=== PATIENT | male | born 1950 | race Caucasian/White ===

== ENCOUNTER 2021-11-28 10:49 | Day surgery (SDC) | payer MEDICARE, BC ==
[~2021-11-28] VITALS: Ht 182.9 cm; Wt 73.8 kg
[~2021-11-28 10:49] MED LIST: ASPI325; Excedrin Extra1 EACH PO; Maxalt10 MG PO; OMEP20ER PO
[2021-11-28] MEDS ORDERED: METO25ER (11:26)
== END 2021-11-28 13:15 | disposition home or self-care (01) ==
LOC: ORSCSDS 10:49
PROVIDERS: Internal Medicine Gastroenterology
PROC: 0DBM8ZX Excision of Descending Colon, Via Natural or Artificial Opening Endoscopic, Diagnostic (ICD-10-PCS; principal; 2021-11-28 12:00)
PROC: 0DBL8ZX Excision of Transverse Colon, Via Natural or Artificial Opening Endoscopic, Diagnostic (ICD-10-PCS; principal; 2021-11-28 12:00)
DX: D50.9 Iron deficiency anemia, unspecified (principal); D12.3 Benign neoplasm of transverse colon; D12.4 Benign neoplasm of descending colon; K57.30 Diverticulosis of large intestine without perforation or abscess without bleeding; K64.8 Other hemorrhoids; Z87.11 Personal history of peptic ulcer disease; Z79.899 Other long term (current) drug therapy
CPT/HCPCS: 88305; J2704; J7120

== ENCOUNTER 2022-04-25 11:31 | Emergency (ER) | payer MEDICARE, BC ==
[~2022-04-25] VITALS: Ht 180.3 cm; Wt 81.7 kg
[~2022-04-25 11:31] MED LIST changes: +METO25ER
[2022-04-25 12:23] LABS: BASOPHILS ABSOLUTE AUTO 0.03 K/mm3 (0.00-0.23); BASOPHILS PERCENT AUTO 0 % (0-2); EOSINOPHILS ABSOLUTE AUTO 0.11 K/mm3 (0.00-0.68); EOSINOPHILS PERCENT AUTO 2 % (0-6); Hematocrit 33.9 % (37.0-53.0); Hemoglobin 11.2 g/dL (13.5-17.5); IMMATURE GRAN ABSOLUTE AUTO 0.02 K/mm3 (0.00-0.10); IMMATURE GRAN PERCENT AUTO 0 % (0-1); LYMPHOCYTES ABSOLUTE AUTO 1.36 K/mm3 (0.84-5.20); LYMPHOCYTES PERCENT AUTO 20 % (21-46); MONOCYTES ABSOLUTE AUTO 0.46 K/mm3 (0.16-1.47); MONOCYTES PERCENT AUTO 7 % (4-13); Mean Corpuscular HGB 28.6 pg (26.0-34.0); Mean Corpuscular Volume 87 fL (80-100); Mean Platelet Volume 10.6 fL (9.1-12.4); NEUTROPHILS ABSOLUTE AUTO 4.88 K/mm3 (1.96-9.15); NEUTROPHILS PERCENT AUTO 71 % (41-73); Platelet Count 160 K/mm3 (150-400); RDW Coefficient Variation 16.2 % (11.7-14.2); RDW Standard Deviation 51.5 fL (35.1-46.3); Red Blood Cell Count 3.91 M/mm3 (4.30-5.90); White Blood Cell Count 6.86 K/mm3 (4.00-11.30)
[2022-04-25 12:47] LABS: Albumin, Blood 3.5 g/dL (3.4-5.0); Albumin/Globulin Ratio 1.4 (0.8-1.8); Bilirubin, Total 0.6 mg/dL (0.1-1.0); Bun/Creatinine Ratio 36.7 (12.0-20.0); Calcium, Blood 8.8 mg/dL (8.5-10.1); Creatinine, Blood 0.82 mg/dL (0.60-1.20); Globulin, Blood 2.5 g/dL (2.2-4.0); Potassium, Blood 4.1 mmol/L (3.5-5.5)
== END 2022-04-25 13:59 | disposition home or self-care (01) ==
LOC: ER 11:31
PROVIDERS: Physician Assistant
DX: K92.1 Melena (principal); D62 Acute posthemorrhagic anemia; K64.8 Other hemorrhoids; Z88.8 Allergy status to other drugs, medicaments and biological substances; Z79.899 Other long term (current) drug therapy; Z87.891 Personal history of nicotine dependence
CPT/HCPCS: 36415; 80053; 85025; 86850; 86900; 86901; 93005; 93010; 99283-25

== ENCOUNTER 2023-01-27 11:21 | Observation (INO) | payer OTHER, BC ==
[~2023-01-27] VITALS: Ht 180.3 cm; Wt 79.3 kg
[2023-01-27] MEDS ORDERED: METOPROLOL TART5010 PO (11:59)
[2023-01-27] MEDS ORDERED: LOSA50 PO (11:59)
[2023-01-27 12:03] LABS: BASOPHILS ABSOLUTE AUTO 0.02 K/mm3 (0.00-0.23); BASOPHILS PERCENT AUTO 0 % (0-2); EOSINOPHILS ABSOLUTE AUTO 0.11 K/mm3 (0.00-0.68); EOSINOPHILS PERCENT AUTO 2 % (0-6); Hematocrit 32.2 % (37.0-53.0); Hemoglobin 10.7 g/dL (13.5-17.5); IMMATURE GRAN ABSOLUTE AUTO 0.02 K/mm3 (0.00-0.10); IMMATURE GRAN PERCENT AUTO 0 % (0-1); LYMPHOCYTES ABSOLUTE AUTO 1.19 K/mm3 (0.84-5.20); LYMPHOCYTES PERCENT AUTO 18 % (21-46); MONOCYTES ABSOLUTE AUTO 0.42 K/mm3 (0.16-1.47); MONOCYTES PERCENT AUTO 6 % (4-13); Mean Corpuscular HGB 30.1 pg (26.0-34.0); Mean Corpuscular HGB Conc 33.2 g/dL (31.5-36.5); Mean Corpuscular Volume 90 fL (80-100); Mean Platelet Volume 10.6 fL (9.1-12.4); NEUTROPHILS ABSOLUTE AUTO 4.82 K/mm3 (1.96-9.15); NEUTROPHILS PERCENT AUTO 73 % (41-73); Platelet Count 173 K/mm3 (150-400); RDW Coefficient Variation 13.8 % (11.7-14.2); RDW Standard Deviation 45.1 fL (35.1-46.3); Red Blood Cell Count 3.56 M/mm3 (4.30-5.90); White Blood Cell Count 6.58 K/mm3 (4.00-11.30)
[2023-01-27 12:22] LABS: Albumin, Blood 3.4 g/dL (3.4-5.0); Albumin/Globulin Ratio 1.1 (0.8-1.8); Bilirubin, Total 0.7 mg/dL (0.1-1.0); Calcium, Blood 8.9 mg/dL (8.5-10.1); Creatinine, Blood 0.95 mg/dL (0.60-1.20); Globulin, Blood 3.1 g/dL (2.2-4.0); Potassium, Blood 4.1 mmol/L (3.5-5.5); Total Protein, Blood 6.5 g/dL (6.4-8.2)
[2023-01-27 14:17] VITALS: BP 151/76
[2023-01-27 15:44] VITALS: BP 151/70
--- NOTE | 2023-01-27 18:16 | NUR ---
SHIFT SUMMARY PT A&OX4 AND PLEASANT. PT TRANSFERED FROM ED AT ABOUT 1400. PT ORRIENTED TO ROOM. NO C/O PAIN. DENIED N/V. PT STATED NO BM SINCE ARRIVING AT THE HOSPITAL. PT NPO FOR ENDOSCOPE. PER ED NOTES, DR ROSSI WAS CONSULTED ABOUT PT'S POSSIBLE GI BLEED AND DR ROSSI RECOMENDED ADMISSION. ORDER FOR GI CONSULT AND RN TO NOTIFY BUT THERE IS NO GI COVERAGE FOR THE REST OF THE MONTH SO THIS NURSE UNABLE TO NOTIFY GI OFFICE. PT STILL NPO FOR PLANNED ENDOSCOPY TOMORROW. IND IN ROOM. VSS. BED IN LOWEST POSITION AND CALL LIGHT IN REACH.
[2023-01-27 19:48] VITALS: BP 150/67
[2023-01-28] VITALS (15 sets, daily range): BP systolic 96–158; BP diastolic 46–78
[2023-01-28 05:04] LABS: BASOPHILS ABSOLUTE AUTO 0.02 K/mm3 (0.00-0.23); BASOPHILS PERCENT AUTO 0 % (0-2); EOSINOPHILS PERCENT AUTO 2 % (0-6); Hematocrit 29.9 % (37.0-53.0); IMMATURE GRAN ABSOLUTE AUTO 0.02 K/mm3 (0.00-0.10); IMMATURE GRAN PERCENT AUTO 0 % (0-1); LYMPHOCYTES ABSOLUTE AUTO 1.23 K/mm3 (0.84-5.20); LYMPHOCYTES PERCENT AUTO 20 % (21-46); MONOCYTES PERCENT AUTO 7 % (4-13); Mean Corpuscular HGB Conc 33.4 g/dL (31.5-36.5); Mean Corpuscular Volume 90 fL (80-100); Mean Platelet Volume 10.8 fL (9.1-12.4); NEUTROPHILS ABSOLUTE AUTO 4.41 K/mm3 (1.96-9.15); NEUTROPHILS PERCENT AUTO 71 % (41-73); Platelet Count 149 K/mm3 (150-400); RDW Coefficient Variation 13.7 % (11.7-14.2); RDW Standard Deviation 44.5 fL (35.1-46.3); Red Blood Cell Count 3.33 M/mm3 (4.30-5.90); White Blood Cell Count 6.18 K/mm3 (4.00-11.30)
[2023-01-28 05:31] LABS: Albumin, Blood 3.2 g/dL (3.4-5.0); Albumin/Globulin Ratio 1.2 (0.8-1.8); Bilirubin, Total 0.9 mg/dL (0.1-1.0); Bun/Creatinine Ratio 16.9 (12.0-20.0); Calcium, Blood 8.3 mg/dL (8.5-10.1); Creatinine, Blood 0.83 mg/dL (0.60-1.20); Globulin, Blood 2.7 g/dL (2.2-4.0); Potassium, Blood 3.6 mmol/L (3.5-5.5); Total Protein, Blood 5.9 g/dL (6.4-8.2)
--- NOTE | 2023-01-28 06:31 | NUR ---
END OF SHIFT SUMMARY PT A&O x4, VSS, AFEBRILE. PT PLEASANT AND COOPERATIVE WITH CARE PROVIDED. PT ADMITTED FOR GI BLEED. PT IS SCHEDULED TO HAVE A EGD ON DAY SHIFT TODAY SO PT IS NPO. NO C/O PAIN OR DISCOMFORT. NO NAUSEA/VOMITTING OVERNIGHT. PT UP AD NAYELI, INDEPENDENT WITH ADL's. PT ABLE TO MAKE NEEDS KNOWN. CALL LIGHT WITHIN REACH, [facility].
--- NOTE | 2023-01-28 14:33 | NUR ---
Upon receiving a referral for spiritual care, I visited the patient. Patient immediately shares his disappointments about the care he has received in the hospital. He acknowledges that [place] doctors and medical staff can be quite challening and that he would consider talking to a patient advocate but he is not sure at the time of this note if he is interested in pursuing the matter further. Patient talks at length about his family, his Hindu foreign and his careers. I provide therapeutic listening, theological insights and prayer. Patient responded well and showed signs of improved patient experience and increased peace.
--- NOTE | 2023-01-28 18:16 | NUR ---
SHIFT SUMMARY PT TAKEN FOR EGD AT APPROX 17:30. PRIOR TO EGD, PT A&OX4, VSS, AMB IND, NPO, NS INFUSING @ 100 MLS/HR, SALINE LOCKED PRIOR TO PROCEDURE, AND DENIED PAIN AND OR N/V. PT CONT TO BE IN PROCEDURE DURING SHIFT CHANGE. REPORT GIVEN TO ONCOMING RN.
--- NOTE | 2023-01-28 18:51 | NUR ---
01/28/23 1855 Kenya Akers HISTORY, CHART, MEDICATIONS AND ALLERGIES REVIEWED BEFORE START OF PROCEDURE. PATIENT CONFIRMS NPO STATUS AND AGREES WITH SCHEDULED PROCEDURE. 3-LEAD EKG REVIEWED WITH PHYSICIAN PRIOR TO START OF PROCEDURE. MONITOR INTACT WITH CONTINUOUS PULSE OXIMETRY,CAPNOGRAPHY, 3-LEAD EKG, INTERMITTENT BP. SUPPLEMENTAL O2 TO BE TITRATED THROUGHOUT PROCEDURE TO MAINTAIN O2 SATURATION ABOVE 90%. PATIENT DETERMINED TO BE ASA APPROPRIATE FOR PROPOFOL SEDATION PRIOR TO START OF PROCEDURE BY DR. ROSSI
[2023-01-28] MEDS ORDERED: OMEP20ER PO (20:16)
--- NOTE | 2023-01-28 20:26 | NUR ---
CAME TO EVALUATE PT UPON PT'S REQUEST AND DISCHARGE ORDERS WERE RECIEVED. TEACHING AND PAPERWORK WERE GONE OVER W/PT AND HIS . HE APPEARED IN STABLE CONDITION UPON LEAVING AT 2021 AND HE HAD ALL BELONGINGS IN HIS POSSESSION.
== END 2023-01-28 20:38 | disposition home or self-care (01) ==
LOC: ER 11:21 → MEDS 11:22
PROVIDERS: Internal Medicine Gastroenterology; Physician Assistant; Student in an Organized Health Care Education/Training Program; ADMIT Internal Medicine
PROC: 0DB68ZX Excision of Stomach, Via Natural or Artificial Opening Endoscopic, Diagnostic (ICD-10-PCS; principal; 2023-01-28 16:00)
PROC: 0DB98ZX Excision of Duodenum, Via Natural or Artificial Opening Endoscopic, Diagnostic (ICD-10-PCS; principal; 2023-01-28 16:00)
DX: K57.31 Diverticulosis of large intestine without perforation or abscess with bleeding (principal); D64.9 Anemia, unspecified; G43.009 Migraine without aura, not intractable, without status migrainosus; I10 Essential (primary) hypertension; K64.8 Other hemorrhoids; K26.4 Chronic or unspecified duodenal ulcer with hemorrhage; Z87.891 Personal history of nicotine dependence; K29.70 Gastritis, unspecified, without bleeding
CPT/HCPCS: 36415; 80053; 83690; 85018; 85025; 86850; 86900; 86901; 96361; 96374; 96376; 99285-25; C9113; G0378; J2001; J2704; J7030; J7120